=== PATIENT | male | born 1975 | race Caucasian/White ===

== ENCOUNTER 2018-11-28 12:19 | Emergency (ER) | payer OTHER ==
--- NOTE | 2018-11-28 14:05 | UC ---
Lower Extremity/Ankle HPI - HPI Summary HPI Summary: 43 y/o male presents to the urgent care c/o RT foot pain s/p playing frizbee w/ his family about 4 days ago at a camp. Pt reports she landed hard on is RT foot and the floor was uneven. He was able to continue walking, but with the days it has progressively worsen w/ pain and swelling over the dorsal side of his Rt foot radiating to the top of ankle. Pain is sharp 5/10 w/ walking. Pt has applied ice and taken Ibuprofen PO to alleviate symptoms. Last dose taken was around 0600am today. Pt denies numbness or tingling sensation over the Rt foot, calf pain, SOB, chest pain, abdominal pain. N/V/D. - History of Current Complaint Chief Complaint: UCLowerExtremity Stated Complaint: R FOOT PAIN Time Seen by Provider: 11/28/18 14:02 Hx Obtained From: Patient Onset/Duration: Sudden Onset, Lasting Days - 5 days, Still Present, Worse Since - yesterday w/ swelling Severity Initially: Moderate Severity Currently: Moderate Pain Intensity: 5 Pain Scale Used: 0-10 Numeric Aggravating Factor(s): Standing, Ambulation Alleviating Factor(s): Rest, Elevation, OTC Meds - Ibuprofen PO lasdt doese taken this morning around 0600AM Able to Bear Weight: Yes - Risk Factors Gout Risk Factors: Negative DVT Risk Factors: Negative Septic Arthritis Risk Factor: Negative - Allergies/Home Medications Allergies/Adverse Reactions: Allergies Allergy/AdvReac Type Severity Reaction Status Date / Time No Known Allergies Allergy Verified 11/28/18 12:43 PMH/Surg Hx/FS Hx/Imm Hx Previously Healthy: Yes - Pt deneis PMHX - Surgical History Surgical History: Yes Surgery Procedure, Year, and Place: TUMMY TU POST WEIGHT LOSS - Family History Known Family History: Positive: Cardiac Disease, Hypertension, Diabetes - Social History Occupation: Employed Full-time Lives: With Family Alcohol Use: Occasionally Substance Use Type: None Smoking Status (MU): Never Smoked Tobacco - Immunization History Most Recent Influenza Vaccination: none Review of Systems All Other Systems Reviewed And Are Negative: Yes Constitutional: Positive: Negative Skin: Positive: Negative Eyes: Positive: Negative ENT: Positive: Negative Respiratory: Positive: Negative Cardiovascular: Positive: Negative Gastrointestinal: Positive: Negative Genitourinary: Positive: Negative Motor: Positive: Negative Neurovascular: Positive: Negative Musculoskeletal: Positive: Decreased ROM - Right foot, Other: - RT foot pain and swelling s/p injury Neurological: Positive: Negative Psychological: Positive: Negative Is Patient Immunocompromised?: No Physical Exam - Summary Physical Exam Summary: Vital Signs Reviewed: Yes General : well developed, well nourished obese male w/o any apparent distress Eyes: Positive: Conjunctiva Clear - PERRLA, EOMI ENT: Positive: Normal ENT inspection, Hearing grossly normal, Pharynx normal, TMs normal Neck: Positive: Supple, Nontender, No Lymphadenopathy Respiratory: Positive: Chest non-tender, Lungs clear, Normal breath sounds, No respiratory distress Cardiovascular: Positive: RRR, No Murmur, Pulses Normal Abdomen Description: Positive: Nontender, No Organomegaly, Soft. Negative: CVA Tenderness (R), CVA Tenderness (L) Bowel Sounds: Positive: Present Musculoskeletal: Positive: Strength Intact, ROM Intact, No Edema, RT Foot/Toes: Pt is able to bear weight but ambulate with mild limping. RT foot :No surface trauma, ecchymosis, erythema, lesions, ulcers or break in skin integrity. The R foot is without obvious asymmetry or deformity when compared to the L foot. No bony step-off, No tenderness to palpation over toes, point tenderness over the dorsal side of mid foot w/ moderate swelling and base of the 4th and 5th metatarsal and sole at the same level, no tenderness of hindfoot, Decrease plantar/dorsiflexion, inversion/eversion due to pain. Distal motor and neurovascular status are intact. Neurological Exam: Normal Psychological Exam: Normal Skin Exam: Normal Triage Information Reviewed: Yes Vital Signs: Initial Vital Signs Temp 98.4 F 11/28/18 12:34 Pulse 75 11/28/18 12:34 Resp 18 11/28/18 12:34 BP 152/94 11/28/18 12:34 Pulse Ox 99 11/28/18 12:34 Lower Extremity Course/Dx - Course Course Of Treatment: 43 y/o male presents to the urgent care c/o RT foot pain s/p playing [employer] w/ his family about 4 days ago at a camp. Pt reports she landed hard on is RT foot and the floor was uneven. He was able to continue walking, but with the days it has progressively worsen w/ pain and swelling over the dorsal side of his Rt foot radiating to the top of ankle. Pain is sharp 5/10 w/ walking. Pt has applied ice and taken Ibuprofen PO to alleviate symptoms. Last dose taken was around 0600am today. Pt denies numbness or tingling sensation over the Rt foot, calf pain, SOB, chest pain, abdominal pain. N/V/D. Hx obtained. Pt givne Ibuprofen PO by nurse for pain. pt tolerated well medication and pain decrease. RT Ankle and foot X-ray ordered, Impression:The soft tissues are grossly unremarkable. Bone mineralization is within normal limits. No fracture is identified. Calcaneal enthesophytes extending along the Achilles tendon and plantar fascia. Anatomic alignment is maintained. The joint spaces are preserved as per radiologist Pt w/ moderate RT foot sprain. Pt's foot immobilized with CAM boot and given crutches to avoid weight bearing. Advised RICE, and Rx Ibuprofen PO for pain, Advised to f/u with Orthopedic DR Jacques or Sports Medicine referral for further evaluation and treatment on his Rt foot sprain. Pt's BP is elevated today advised to decrease salt in diet, monitor BP and f/u with PCP for further management. D/C instructions explained. Pt understood and agreed with plan of care. - Differential Dx/Diagnosis Differential Diagnosis/HQI/PQRI: Arthritis, Contusion, Dislocation, Fracture ( Closed), Sprain, Strain, Tendonitis Provider Diagnosis: Right foot injury, Right foot sprain, Elevated BP without diagnosis of hypertension Discharge - Sign-Out/Discharge Documenting (check all that apply): Patient Departure - D/C home All imaging exams completed and their final reports reviewed: Yes - Discharge Plan Condition: Stable Disposition: HOME Prescriptions: Ibuprofen TAB* [Motrin TAB* 800 MG] 800 mg PO Q6H PRN #30 tab PRN Reason: Pain Patient Education Materials: Foot Sprain (ED), Low-Sodium Diet (ED) Forms: *Work Release Referrals: Ced Jacques MD [Medical Doctor] - 2 Days [facility] [Outside] - 2 Days [facility] [Provider Group] - 2 Days Additional Instructions: 1-Please take Ibuprofen PO q6-8hrs prn after meals as directed to alleviate pain and swelling. 2-Please apply ice, keep your foot immobilized with the CAM boot. Avoid weight bearing by using the crutches. Elevate your foot to decrease swelling. Avoid strenuous exercise or standing for long periods of time 3- Please f/u with your PCP or Orthopedic Dr Jacques or Sports Medicine in 2-3 days for further evaluation and treatment of your foot sprain. If pain and swelling becomes severe please go immediately to the ER for further management 4- Your BP is elevated today. please decrease salt in your diet, monitor BP and if it continues to be elevated please f/u with your PCP for further management. - Billing Disposition and Condition Condition: STABLE Disposition: Home
[2018-11-28] MEDS ORDERED: Ibuprofen TAB* 400 MG PO ONE (14:18)
[2018-11-28 14:32] VITALS: BP 143/91
== END 2018-11-28 15:33 | disposition home or self-care (01) ==
LOC: UCEAST 12:19
DX: S93.601A Unspecified sprain of right foot, initial encounter (principal); X50.0XXA Overexertion from strenuous movement or load, initial encounter; Y92.9 Unspecified place or not applicable
CPT/HCPCS: 99214; A9270-GY; G0463